=== PATIENT | female | born 1995 | race Two or more races ===

== ENCOUNTER 2024-07-04 20:01 | Emergency (ER) | payer OTHER ==
[2024-07-04 20:05] VITALS: BP 124/83; PULSE 81; RESP 16; TEMP 98.3; BMI 29.0
[2024-07-04] MEDS ORDERED: ACETAMINOPHEN 325 MG TABLET (FP) ONE (20:40)
[2024-07-04] MEDS: ACETAMINOPHEN 325 MG TABLET (FP) PO ONE (20:43)
== END 2024-07-04 22:29 | disposition home or self-care (01) ==
LOC: JERFT 20:01
DX: S93.401A Sprain of unspecified ligament of right ankle, initial encounter (principal); W10.8XXA Fall (on) (from) other stairs and steps, initial encounter
CPT/HCPCS: 73610-TC-RT-FY; 73630-TC-RT-FY; 99283-25

== ENCOUNTER 2024-10-17 20:37 | Emergency (ER) | payer OTHER ==
[2024-10-17 20:43] VITALS: BMI 29.8
[2024-10-17] MEDS: SODIUM CHLORIDE 0.9% 500 ML INFUS.BAG IV ONE (21:36)
[2024-10-17 21:37] LABS: BASO % 0.3 % (0-2.0); EOS % 0.9 % (0-4.5); HEMATOCRIT 37.4 % (32.4-45.2); HEMOGLOBIN 12.3 GM/dL (10.7-15.3); LYMPH % 34.5 % (8-40); MCH 28.3 pg (25.7-33.7); MCHC 32.8 g/dl (32.0-36.0); MEAN CELL VOLUME 86.3 fl (80-96); MEAN PLT VOLUME 7.3 fl (7.5-11.1); NEUT % 52.3 % (42.8-82.8); PLATELET COUNT 278 10^3/uL (134-434); RBC 4.33 M/mm3 (3.60-5.2); WHITE BLOOD COUNT 7.8 K/mm3 (4.0-10.0)
[2024-10-17] MEDS ORDERED: METOCLOPRAMIDE HCL INJECTION 10 MG/2 ML VIAL ONE (21:51)
[2024-10-17] MEDS ORDERED: ACETAMINOPHEN INJECTION 100 ML ONE (21:51)
[2024-10-17 22:03] LABS: CHLORIDE 105 mmol/L (98-107); SODIUM 124 mmol/L (136-145)
[2024-10-17 22:05] LABS: CALCIUM 8.2 mg/dL (8.5-10.1)
[2024-10-17] MEDS: METOCLOPRAMIDE HCL INJECTION 10 MG/2 ML VIAL IVPB ONE (22:05)
[2024-10-17] MEDS: ACETAMINOPHEN 1000 MG/100 ML BAG IVPB ONE (22:05)
[2024-10-17 22:06] LABS: ALBUMIN 3.1 g/dl (3.4-5.0); BLOOD UREA NITROGEN 14.3 mg/dL (7-18); CO2 22 mmol/L (21-32); GLUCOSE,RANDOM 83 mg/dL (74-106); MAGNESIUM 1.9 mg/dL (1.8-2.4)
[2024-10-17 22:09] LABS: CREATININE 0.7 mg/dL (0.55-1.3)
[2024-10-17 22:10] LABS: TOT PROT 7.7 g/dl (6.4-8.2)
[2024-10-17 22:11] LABS: ALK PHOS 55 U/L (45-117)
[2024-10-17 22:30] LABS: ANION GAP -2 mmol/L (4-13); POTASSIUM > 10.0 mmol/L (3.5-5.1); SGOT/AST 119 U/L (15-37); SGPT/ALT 23 U/L (13-61)
[2024-10-17 22:49] LABS: BILIRUBIN,TOTAL < 0.1 mg/dL (0.2-1)
[2024-10-17 23:21] LABS: POTASSIUM 3.6 mmol/L (3.5-5.1)
[2024-10-17 23:23] LABS: MAGNESIUM 1.7 mg/dL (1.8-2.4)
[2024-10-17 23:26] LABS: CREATININE 0.5 mg/dL (0.55-1.3)
[2024-10-17] MEDS ORDERED: MAGNESIUM 1GM/D5W - 1 GM/100 ML IVPB IVPB ONE (23:53)
[2024-10-17] MEDS: MAGNESIUM 1GM/D5W - 1 GM/100 ML IVPB IVPB ONE (23:56)
[2024-10-18 00:07] LABS: EPI CELLS >36 /uL (0-25.1); HYALINE CASTS 1 /uL (0-3.1); URINE APPEARANCE CLOUDY; URINE BACTERIA 453 /uL (0-1359); URINE BILIRUBIN NEGATIVE (NEGATIVE); URINE COLOR YELLOW; URINE GLUCOSE (UA) NEGATIVE (NEGATIVE); URINE KETONE TRACE (NEGATIVE); URINE LEUK ESTERASE NEGATIVE (NEGATIVE); URINE NITRITE NEGATIVE (NEGATIVE); URINE PROTEIN NEGATIVE (NEGATIVE); URINE RBC 19 /uL (0-23.9); URINE UROBILINOGEN 0.2 mg/dL (0.2-1.0); URINE WBC 5 /uL (0-25.8)
[2024-10-18 01:11] VITALS: BP 104/64; PULSE 66; RESP 18; TEMP 98.4
[2024-10-18] MEDS ORDERED: ACETAMINOPHEN INJECTION 100 ML ONE (02:01)
== END 2024-10-18 02:32 | disposition home or self-care (01) ==
LOC: JER 20:37
PROC: 3E033GC Introduction of Other Therapeutic Substance into Peripheral Vein, Percutaneous Approach (ICD-10-PCS; principal; 2024-10-17)
PROC: 3E033NZ Introduction of Analgesics, Hypnotics, Sedatives into Peripheral Vein, Percutaneous Approach (ICD-10-PCS; 2024-10-17)
PROC: 3E033GC Introduction of Other Therapeutic Substance into Peripheral Vein, Percutaneous Approach (ICD-10-PCS; 2024-10-17)
DX: O99.891 Other specified diseases and conditions complicating pregnancy (principal); R55 Syncope and collapse; O21.9 Vomiting of pregnancy, unspecified; Z3A.01 Less than 8 weeks gestation of pregnancy; Z20.822 Contact with and (suspected) exposure to COVID-19
CPT/HCPCS: 0241U-QW; 36415; 76817-TC; 80048; 80053; 81003; 82962; 83735; 84484; 84702; 85025; 87086; 93005; 93010; 99285-25; J0131